=== PATIENT | male | born 1960 | race Caucasian/White ===

== ENCOUNTER 2019-11-23 09:29 | Emergency (ER) | payer OTHER ==
[2019-11-23 10:24] VITALS: BP 107/69
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
== END 2019-11-23 10:46 | disposition home or self-care (01) ==
LOC: UCCORT 09:29
DX: J02.0 Streptococcal pharyngitis (principal)
CPT/HCPCS: 87651; 99202; G0463